=== PATIENT | female | born 1955 | race Caucasian/White ===

== ENCOUNTER 2019-04-27 19:51 | Emergency (ER) | payer OTHER, MEDICARE ==
[~2019-04-27] VITALS: Ht 157.5 cm; Wt 67.1 kg
[~2019-04-27 19:51] MED LIST: DIAZ5TAB4 PO; MONT10TA22 PO; NAPR-1172 PO; PROAIR INH
--- NOTE | 2019-04-27 20:25 | NUR ---
ER at bedside examining patient.
--- NOTE | 2019-04-27 20:30 | NUR ---
Patient to ER bed 2 to gown for evaluation. Side rails up. Report given to Krystal CUI.
[2019-04-27 20:32] VITALS: BP_SYST 133
[2019-04-27] MEDS ORDERED: HYDROcodone/ACETAMIN 5-325 MG TAB (NORCO/ VICODIN) PO ONE (20:45)
[2019-04-27] MEDS ORDERED: ONDANSETRON 4 MG ODT TAB PO ONE (20:45)
--- NOTE | 2019-04-27 21:30 | NUR ---
Pt was walking her dog, when she tripped fell and landed on left hand. Left wrist with swelling, pain 10/10. No c/o numbness or tingling. Pt able to wiggle fingers on left hand freely.
--- NOTE | 2019-04-27 22:03 | NUR ---
Patient given written and verbal discharge instructions and verbalizes understanding. ER MD discussed with patient the results and treatment provided. Patient in stable condition. ID arm band removed. Rx of [place] 5mg-325mg given. Patient educated on pain management and to follow up with PMD. Pain Scale 7/10. Opportunity for questions provided and answered. Medication side effect fact sheet provided.
== END 2019-04-27 22:03 | disposition home or self-care (01) ==
LOC: SED 19:51
DX: S52.502A Unspecified fracture of the lower end of left radius, initial encounter for closed fracture (principal); J45.909 Unspecified asthma, uncomplicated; R03.0 Elevated blood-pressure reading, without diagnosis of hypertension; Z79.899 Other long term (current) drug therapy; W19.XXXA Unspecified fall, initial encounter; Y93.89 Activity, other specified; Y92.89 Other specified places as the place of occurrence of the external cause; Y99.8 Other external cause status
CPT/HCPCS: 29125; 73110; 99283; Q0162